=== PATIENT | male | born 2000 | race African-American/Black ===

== ENCOUNTER 2018-03-21 17:55 | Emergency (ER) | payer BC, OTHER ==
[~2018-03-21] VITALS: Ht 167.6 cm; Wt 61.2 kg
[2018-03-21 20:04] VITALS: BP 120/74
== END 2018-03-21 19:50 | disposition home or self-care (01) ==
LOC: ER 17:55
DX: S93.401A Sprain of unspecified ligament of right ankle, initial encounter (principal); X50.3XXA Overexertion from repetitive movements, initial encounter; Y93.67 Activity, basketball; Y92.89 Other specified places as the place of occurrence of the external cause; Y99.8 Other external cause status